=== PATIENT | male | born 1960 | race Caucasian/White ===

== ENCOUNTER 2017-05-12 15:08 | Emergency (ER) | payer OTHER ==
--- NOTE | ~2017-05-12 | CT71 ---
[facility] A Service [facility] RADIOLOGY TEXT RESULTS PATIENT: JAYLEN YATES LOCATION: SED : 60 UNIT #: [id number] AGE: [address]: Nomi Nuñez MD SEX: M ORDER DR: [id number] [place] [address] [id number] E MR#: [id number] Acc #: [id number] NAME: JAYLEN YATES : 1960 SEX: M STUDY DATE/TIME: 05/12/2017 15:41 UNIT: SED ROOM: STUDY DESCRIPTION: CT Head Wo Contrast Attending Physician: Nomi Nuñez M.D. Ordering Physician: Nomi Nuñez M.D. Primary Care Physician: Lei Craven M.D. MEDICAL IMAGING REPORT This report is preliminary unless electronic signature is present. EXAM Noncontrast head CT. HISTORY Fell 15 feet from roof at home today, left-sided neck pain, headache. COMPARISON Head CT 08/07/2009 TECHNIQUE Axial noncontrast images were obtained from the skull base to the vertex. This CT exam was performed with one or more of the following radiation dose reduction techniques: Automatic exposure control, adjustment of mA and/or kV according to patient size, and iterative reconstruction. FINDINGS Ventricular size and configuration are normal. There is no evidence of acute infarct or hemorrhage. There are no extraaxial fluid collections. No mass lesion or mass effect is seen. There are no skull fractures. IMPRESSION Normal noncontrast head CT. Dictated by... Jose Griffin M.D. THIS IS AN ELECTRONICALLY VERIFIED REPORT Jose Griffin M.D. at 05/13/2017 3:08 PM ARNOLD/edson TD: 05/13/2017 01:41 [facility] A Service [facility] RADIOLOGY TEXT RESULTS PATIENT: JAYLEN YATES LOCATION: SED : 60 UNIT #: [id number] AGE: [address]: Nomi Nuñez MD SEX: M ORDER DR: DORIE #: [id number] MEDICAL IMAGING REPORT Page 1 of 1
--- NOTE | ~2017-05-12 | CT52 ---
[facility] A Service of [facility] RADIOLOGY TEXT RESULTS PATIENT: JAYLEN YATES LOCATION: SED : 60 UNIT #: [id number] AGE: [address]: Nomi Nuñez MD SEX: M ORDER DR: [id number] [place] [address] [id number] E MR#: [id number] Acc #: [id number] NAME: JAYLEN YATES : 1960 SEX: M STUDY DATE/TIME: 05/12/2017 15:29 UNIT: SED ROOM: STUDY DESCRIPTION: CT Cervical Spine Wo Cont Attending Physician: Nomi Nuñez M.D. Ordering Physician: Nomi Nuñez M.D. Primary Care Physician: Lei Craven M.D. MEDICAL IMAGING REPORT This report is preliminary unless electronic signature is present. EXAM CT cervical spine without contrast HISTORY 56-year-old male fell 15 feet from roof at home, left-sided neck pain, left shoulder and back pain. TECHNIQUE Axial noncontrast imaging was performed through the cervical spine with multiplanar reconstructed images reviewed at a workstation. This CT exam was performed with one or more of the following radiation dose reduction techniques: automatic exposure control, adjustment of mA and/or kV according to patient size, and iterative reconstruction. FINDINGS No fracture or malalignment. Mild arthritic changes noted atlantoaxial joint. There is also a small amount of prevertebral calcification anterior to C2. Mild multilevel spinal and foraminal stenosis due to a combination of mild disc bulging and facet disease. No large disc herniations or high-grade stenosis identified by CT. The paravertebral soft tissues unremarkable. Upper thorax unremarkable. IMPRESSION 1. No acute cervical spine abnormality identified. 2. Mild degenerative changes atlantoaxial joint and mild multilevel degenerative disc disease and facet arthropathy contributing to mild multilevel spinal and foraminal stenosis. No high-grade stenosis seen. 1. Dictated by.Myra Griffin M.D. [facility] A Service of [facility] RADIOLOGY TEXT RESULTS PATIENT: JAYLEN YATES LOCATION: SED : 60 UNIT #: [id number] AGE: [address]: Nomi Nuñez MD SEX: M ORDER DR: THIS IS AN ELECTRONICALLY VERIFIED REPORT Jose Griffin M.D. at 05/13/2017 3:08 PM ARNOLD/mary TD: 05/12/2017 23:29 JOB #: [id number] MEDICAL IMAGING REPORT Page 1 of 1
--- NOTE | ~2017-05-12 | CR63 ---
[facility] A Service of [facility] RADIOLOGY TEXT RESULTS PATIENT: JAYLEN YATES LOCATION: SED : 60 UNIT #: [id number] AGE: [address]: Nomi Nuñez MD SEX: M ORDER DR: [id number] [place] [id number] E MR#: [id number] Acc #: [id number] NAME: JAYLEN YATES : 1960 SEX: M STUDY DATE/TIME: 05/12/2017 15:44 UNIT: SED ROOM: STUDY DESCRIPTION: CR Chest 2 View Attending Physician: Nomi Nuñez M.D. Ordering Physician: Nomi Nuñez M.D. Primary Care Physician: Lei Craven M.D. MEDICAL IMAGING REPORT This report is preliminary unless electronic signature is present. EXAM PA and lateral chest INDICATIONS Fall today with posterior shoulder and back pain. Left-sided neck pain and left-sided headache. COMPARISON 10/02/2010 FINDINGS The lungs are well expanded and clear. Heart size normal. Mild degenerative changes thoracic spine. IMPRESSION No active disease. Dictated by... Daniel Griffin M.D. THIS IS AN ELECTRONICALLY VERIFIED REPORT Daniel Griffin M.D. at 05/13/2017 10:06 AM ARS/edson TD: 05/12/2017 23:39 JOB #: [id number] MEDICAL IMAGING REPORT Page 1 of 1
[~2017-05-12 15:08] MED LIST: ALBUTEROL17 G1 IH; ALBUTEROL17 G1 INH; ALBUTEROL17 GM INH; AUGMENTIN PO; BACTRIM DS TABL1 TAB PO; BENZONATATE PO; FLEXERIL10 MG PO; GABAPENTIN300 M2 PO; IBUPROFEN PO; KEFLEX PO; LIORESAL10 MG PO; LISINOPRIL-HCTZ1 T14 PO; LORTAB 10/500 T1 TAB PO; MEDROL PO; MEDROL4 MG/DOSE- PO; NAPROXEN PO; NO MEDICATIONS; NORCO 5/325 TAB1 TAB PO; TYLENOL PM; TYLOX1 CAP 5/50 PO; ULTRAM PO; VICODIN 5/1 TAB 5/50 PO; VICODIN 5/500 T1 TAB PO; VICODIN PO; ZITHROMAX PO
== END 2017-05-12 17:27 | disposition home or self-care (01) ==
LOC: SED 15:08
DX: S16.1XXA Strain of muscle, fascia and tendon at neck level, initial encounter (principal); J45.909 Unspecified asthma, uncomplicated; F17.200 Nicotine dependence, unspecified, uncomplicated; Z79.899 Other long term (current) drug therapy; W11.XXXA Fall on and from ladder, initial encounter; Y92.009 Unspecified place in unspecified non-institutional (private) residence as the place of occurrence of the external cause
CPT/HCPCS: 70450; 71020; 72125; 99284